=== PATIENT | female | born 1955 | race Caucasian/White ===

== ENCOUNTER → 2020-04-07 10:06 | Outpatient (BNVA) | payer BC, SELFPAY | PROVIDERS: Referring Provider Dermatology; Visit Provider Dermatology | DX: I87.2 Venous insufficiency (chronic) (peripheral) (principal); L24.5 Irritant contact dermatitis due to other chemical products; L73.9 Follicular disorder, unspecified; D22.9 Melanocytic nevi, unspecified; L81.7 Pigmented purpuric dermatosis | CPT/HCPCS: 99203; 99204 ==

== ENCOUNTER → 2023-03-16 10:34 | Outpatient (BNVA) | payer MEDICARE, SELFPAY | PROVIDERS: PCP Emergency Medicine; Visit Provider Nurse Practitioner Family | DX: L20.89 Other atopic dermatitis (principal); L57.0 Actinic keratosis; L81.4 Other melanin hyperpigmentation; D22.5 Melanocytic nevi of trunk; L85.3 Xerosis cutis; L57.8 Other skin changes due to chronic exposure to nonionizing radiation; Z85.828 Personal history of other malignant neoplasm of skin | CPT/HCPCS: 17000; 99214 ==

== ENCOUNTER → 2024-03-16 10:11 | Outpatient (BNVA) | payer MEDICARE, SELFPAY | PROVIDERS: PCP Emergency Medicine; Visit Provider Nurse Practitioner Family | DX: L57.0 Actinic keratosis (principal); B07.8 Other viral warts; L20.89 Other atopic dermatitis; L85.3 Xerosis cutis; D22.5 Melanocytic nevi of trunk; L81.4 Other melanin hyperpigmentation; Z85.828 Personal history of other malignant neoplasm of skin | CPT/HCPCS: 17000; 17110; 99213 ==

== ENCOUNTER → 2024-08-14 09:27 | Outpatient (BNVA) | payer MEDICARE, SELFPAY | PROVIDERS: PCP Emergency Medicine; Referring Provider Nurse Practitioner Family; Visit Provider Psychiatry & Neurology Neurology | DX: R41.3 Other amnesia (principal); F03.90 Unspecified dementia, unspecified severity, without behavioral disturbance, psychotic disturbance, mood disturbance, and anxiety; R26.89 Other abnormalities of gait and mobility; E53.8 Deficiency of other specified B group vitamins; E55.9 Vitamin D deficiency, unspecified; R29.898 Other symptoms and signs involving the musculoskeletal system; G56.03 Carpal tunnel syndrome, bilateral upper limbs; M48.00 Spinal stenosis, site unspecified; R29.818 Other symptoms and signs involving the nervous system; R29.2 Abnormal reflex; W19.XXXA Unspecified fall, initial encounter | CPT/HCPCS: 36415; 82306; 82542; 82607; 82746; 83520; 83735; 83921; 84439; 84443; 84481; 86592; 86617; 99203 ==

== ENCOUNTER → 2024-08-22 13:01 | Outpatient (BNVA) | payer MEDICARE, SELFPAY | PROVIDERS: PCP Emergency Medicine; Visit Provider Nurse Practitioner | DX: G56.03 Carpal tunnel syndrome, bilateral upper limbs (principal); R20.2 Paresthesia of skin; M25.531 Pain in right wrist; M25.532 Pain in left wrist | CPT/HCPCS: 73110; 99204 ==

== ENCOUNTER 2024-08-24 11:45 | Outpatient (CLI) | payer MEDICARE, SELFPAY ==
--- NOTE | 2024-08-24 12:15 | MR_ITS ---
WS: [id number] MRI BRAIN WITH AND WITHOUT CONTRAST HISTORY: F03.90 - Unspecified dementia, unspecified severity, weakness COMPARISON: None available. TECHNIQUE: Multiplanar imaging performed through the brain with MultiHance 10 ml's IV. No acute infarcts are seen. Baca-white matter differentiation is well preserved. Moderate cerebral atrophy. Greater atrophy involving the frontal and temporal lobes. Mild hippocampal atrophy. Confluent periventricular T2 and FLAIR signal hyperintensities. Prior infarct RIGHT temporal lobe. Moderate bilateral small vessel disease in the puma. No susceptibility artifacts or prior lacunar infarcts. Mild ventricular and extra-axial spaces dilatation on the basis of atrophy. Clivus and pituitary gland are normal. Postcontrast images are negative for masses or vascular malformations. Dural venous sinuses are normal. Paranasal sinuses: Well aerated with no significant disease. Mastoid air cells: Normal. Calvarium and scalp: Normal. MR/MR head wo/w con [id number] IMPRESSION: 1. No acute infarct or hemorrhage. 2. No intracranial mass or abnormal enhancement. 3. Moderate cerebral atrophy greatest involving the frontal and temporal lobes . 4. Moderate bilateral small vessel ischemic disease in the puma.
--- NOTE | 2024-08-24 13:00 | MR_ITS ---
WS: [email or web address] MRI CERVICAL SPINE with and without contrast HISTORY: M48.00 - Spinal stenosis, site unspecified COMPARISON: None available. Technique: Multiplanar, multisequence noncontrast imaging of the cervical spine. Postcontrast imaging 10 mm MultiHance Mild increase in cervical lordosis. C5 anterolisthesis by 2 mm. Disc spaces and vertebral body heights are well-maintained. No fracture or marrow edema. Normal signal within the cord. Signal within the cervical cord is normal. Visualized posterior fossa is unremarkable. Craniocervical junction, C1 and C2 relationship, odontoid process and soft tissues are normal. C2-C3: Normal. C3-C4: Mild osteophytic ridging. No stenosis. C4-C5: Small LEFT foraminal osteophyte causing mild foraminal narrowing. Mild facet arthritis. C5-C6: Mild annular disc bulging with moderate bilateral facet arthritis and foraminal osteophytes. Mild bilateral foraminal stenosis. C6-C7: Mild osteophytic ridging. Mild facet arthritis. Mild foraminal stenosis. C7-T1: Normal. Paraspinal soft tissues are normal. No enhancing masses. No discitis or osteomyelitis. No facet joint synovitis or acute enhancement. MR/MR cervical spine wo/w [id number] IMPRESSION: 1. No discitis or osteomyelitis. 2. Very slight increase in cervical lordosis. 3. C5 anterolisthesis by 2 mm. 4. C5-6: Mild foraminal stenosis with moderate bilateral facet arthritis. 5. C4-5: LEFT foraminal osteophyte causing mild foraminal narrowing. 6. C6-7: Mild foraminal narrowing due to osteophytes.
--- NOTE | 2024-08-24 13:45 | MR_ITS ---
WS: [email or web address] MRI LUMBAR SPINE WITH AND WITHOUT CONTRAST HISTORY: R29.898 - Other symptoms and signs involving the musculos... COMPARISON: None available. TECHNIQUE: Sagittal and axial multisequence imaging is submitted. MultiHance Mild increase in thoracic kyphosis. Mild LEFT curvature lumbar spine. Posterior lumbar alignment is normal. Disc spaces and vertebral body heights are maintained. Disc spaces and vertebral body heights are well-preserved. Conus terminates normally at L1-2 disc level. L1-L2: Normal. L2-L3: Mild asymmetric disc bulging to the LEFT. Very slight effacement of the LEFT CSF. No stenosis. L3-L4: Mild asymmetric disc bulging with ligamentum flavum and facet arthritis. Minimal subarticular recess encroachment, LEFT greater than RIGHT. Slight disc contact on the traversing LEFT L4 nerve root. Mild disc bulging into the LEFT foramen with mild foraminal stenosis. L4-L5: Mild annular disc bulging asymmetric to the LEFT. Disc encroaching upon the ventral thecal sac and subarticular recesses, greatest on the LEFT. There is contact on the traversing L5 nerve roots, LEFT greater than RIGHT with slight displacement. Shallow LEFT foraminal disc protrusion and mild LEFT foraminal stenosis. Mild central stenosis. Marked ligamentum flavum and facet arthritis. L5-S1: Mild disc bulging with a central disc protrusion. Very slight contact on the LEFT S1 nerve root. No foraminal stenosis. No discitis or osteomyelitis. No enhancing masses. No enhancement along the nerve roots. MR/MR lumbar spine wo/w con [id number] IMPRESSION: 1. Mild LEFT curvature lumbar spine. 2. No acute fractures. 3. L4-5: Mild central stenosis. Asymmetric disc bulging to the LEFT. Disc encr oachment upon the subarticular recesses contacting the traversing L5 nerve root s but greatest on the LEFT. Shallow LEFT foraminal disc protrusion resulting in LEFT foraminal stenosis. 4. L3-4: Slight disc contact on the traversing LEFT L4 nerve root. Mild LEFT s ubarticular recess and foraminal stenosis. 5. L5-S1: Shallow central disc protrusion with slight contact on the LEFT S1 n erve root. 6. No discitis or osteomyelitis.
[2024-08-24] MEDS: gadobenate dimeglumine 20 mL vial 10 ML IV (14:20)
== END 2024-08-24 11:46 | disposition home or self-care (01) ==
LOC: RAD 11:50
PROVIDERS: PCP Emergency Medicine; Visit Provider Psychiatry & Neurology Neurology
DX: F03.90 Unspecified dementia, unspecified severity, without behavioral disturbance, psychotic disturbance, mood disturbance, and anxiety (principal); R29.898 Other symptoms and signs involving the musculoskeletal system; M48.02 Spinal stenosis, cervical region; M43.8X6 Other specified deforming dorsopathies, lumbar region; M48.061 Spinal stenosis, lumbar region without neurogenic claudication; M51.369 Other intervertebral disc degeneration, lumbar region without mention of lumbar back pain or lower extremity pain; R93.7 Abnormal findings on diagnostic imaging of other parts of musculoskeletal system; M40.294 Other kyphosis, thoracic region; M47.896 Other spondylosis, lumbar region; M51.379 Other intervertebral disc degeneration, lumbosacral region without mention of lumbar back pain or lower extremity pain; M47.892 Other spondylosis, cervical region; M25.78 Osteophyte, vertebrae; M50.322 Other cervical disc degeneration at C5-C6 level; G31.89 Other specified degenerative diseases of nervous system; R93.0 Abnormal findings on diagnostic imaging of skull and head, not elsewhere classified
CPT/HCPCS: 70553; 72156; 72158; A9577

== ENCOUNTER 2024-08-27 10:19 | Outpatient (CLI) | payer MEDICARE, SELFPAY ==
--- NOTE | 2024-08-27 10:30 | USCV_ITS ---
Karen Bae Age: 69 Gender: F : 1955 Exam Date: 08/27/2024 10:41 Ordering Phys: Prasanna Chester MD Technologist: DARLYN Exam Location: [facility] [place] Indication: Balance Issues Risk Factors: Previous Vascular Surgery: Right Brachial BP: / Left Brachial BP: / Right Left Velocity (cm/s) Spectral Plaque Velocity (cm/s) Spectral Plaque Syst/Diast Broadening Syst/Diast Broadening 53.00/ 14.10 Prox CCA 84.50 / 21.90 72.40/ 21.90 Mid CCA 93.20 / 28.00 60.60/ 14.10 Distal CCA 79.90 / 21.40 43.00/ 11.00 Prox ICA 74.70 / 26.90 49.90/ 15.90 Mid ICA 131.70/ 36.40 92.80/ 29.20 Distal ICA 100.00/ 26.90 55.70 ECA 61.10 0.70 ICA/CCA 0.90 Antegrade Vertebral Antegrade 50.00/ 10.80 cm/s 46.60/ 15.20 cm/s Tri Subclavian Bi 101.7 118.8 0 0 CONCLUSIONS Right ICA stenosis <50%. Mild atheromatous plaque right carotid bulb/ICA. Left ICA stenosis <50%. Mild atheromatous plaque left carotid bulb/ICA. Intimal thickening in the common carotid arteries and internal carotid arteries bilaterally. Normal antegrade Doppler flow noted in the right vertebral artery. Normal antegrade Doppler flow noted in the left vertebral artery. Ronald Gaona MD (Electronically Signed) Final Date: 27 August 2024 15:18 S
== END 2024-08-27 10:20 | disposition home or self-care (01) ==
LOC: RAD 10:21
PROVIDERS: PCP Emergency Medicine; Visit Provider Psychiatry & Neurology Neurology
DX: F03.90 Unspecified dementia, unspecified severity, without behavioral disturbance, psychotic disturbance, mood disturbance, and anxiety (principal); R26.89 Other abnormalities of gait and mobility; E53.8 Deficiency of other specified B group vitamins; I65.23 Occlusion and stenosis of bilateral carotid arteries; R93.89 Abnormal findings on diagnostic imaging of other specified body structures
CPT/HCPCS: 93880

== ENCOUNTER → 2024-08-28 09:07 | Outpatient (BNVA) | payer MEDICARE, SELFPAY | PROVIDERS: PCP Emergency Medicine; Referring Provider Psychiatry & Neurology Neurology; Visit Provider Psychiatry & Neurology Neurology | DX: G56.03 Carpal tunnel syndrome, bilateral upper limbs (principal) | CPT/HCPCS: 95912 ==

== ENCOUNTER 2024-09-06 09:23 | Outpatient (CLI) | payer MEDICARE, SELFPAY ==
--- NOTE | 2024-09-06 09:30 | MR_ITS ---
WS: [email or web address] MRI THORACIC SPINE with and without contrast HISTORY: R29.898 - Other symptoms and signs involving the musculoskeletal system COMPARISON: None available. TECHNIQUE: Multiplanar sequences are performed in sagittal and axial planes. Post contrast imaging MultiHance 10 mL. Mild increase in thoracic kyphosis. No cord compression. Normal appearance of the cord. No marrow edema or fracture. Conus tapers normally and ends at T12-L1. Tiny RIGHT paracentral disc protrusion at T10-11. No contact on the cord. Mild facet arthritis of the mid to lower thoracic spine. Paravertebral soft tissues are normal. Postcontrast imaging is negative for discitis or osteomyelitis. No enhancing cord lesions. MR/MR thoracic spine wo/w [id number] IMPRESSION: 1. No central or foraminal stenosis within the thoracic spine. 2. No enhancing masses, discitis or osteomyelitis. 3. Tiny RIGHT paracentral disc protrusion at T10-11.
== END 2024-09-06 09:24 | disposition home or self-care (01) ==
LOC: RAD 09:26
PROVIDERS: PCP Emergency Medicine; Visit Provider Psychiatry & Neurology Neurology
DX: R29.898 Other symptoms and signs involving the musculoskeletal system (principal); R29.2 Abnormal reflex; R29.818 Other symptoms and signs involving the nervous system; M40.294 Other kyphosis, thoracic region; M47.894 Other spondylosis, thoracic region
CPT/HCPCS: 72157

== ENCOUNTER → 2024-09-11 10:23 | Outpatient (BNVA) | payer MEDICARE, SELFPAY | PROVIDERS: PCP Emergency Medicine; Visit Provider Orthopaedic Surgery | DX: M54.50 Low back pain, unspecified (principal); R29.898 Other symptoms and signs involving the musculoskeletal system | CPT/HCPCS: 72110; 99203 ==

== ENCOUNTER 2024-09-26 09:30 | Oncology outpatient (recurring) (ONCR) | payer MEDICARE, SELFPAY ==
[2024-09-26 11:15] LABS: Basophils # 0.1 10^3/uL (0.0-0.1); Basophils % 0.6 %; Eosinophils # 0.4 10^3/uL (0.0-0.8); Eosinophils % 3.8 %; Hematocrit 38.9 % (36-47); Lymphocytes # 4.5 10^3/uL (0.8-4.8); Lymphocytes % 47.5 %; Mean Corpuscular HGB Conc 33.2 g/dL (30-55); Mean Corpuscular Hemoglobin 30.3 pg (27-33); Mean Corpuscular Volume 91.3 fl (85-98); Mean Platelet Volume 10.1 fL (7.4-10.4); Monocytes # 0.6 10^3/uL (0.2-0.9); Neutrophils # 3.95 10^3/uL (1.8-7.7); Neutrophils % 41.8 %; Nucleated Red Blood Cells % 0 %; Platelet Count 240 10^3/cmm (157-399); Red Blood Count 4.26 10^6/uL (3.85-5.65); Red Cell Distribution Width 13.4 % (12.1-15.1); White Blood Count 9.47 10^3/uL (3.29-11.43)
[2024-09-26 11:19] LABS: Erythrocyte Sedimentation Rate < 1 mm/hr (0-15)
[2024-09-26 11:44] LABS: Alanine Aminotransferase 20 U/L (0-33); Albumin Level 4.1 g/dL (3.5-5.2); Alkaline Phosphatase 64 U/L (35-105); Anion Gap 15.6 (5-19); Aspartate Amino Transferase 24 U/L (0-32); Blood Urea Nitrogen 17 mg/dL (8-23); Carbon Dioxide 24 mmol/L (22-29); Chloride 108 mmol/L (98-107); Globulin 1.9 g/dL (1.3-4.6); Glomerular Filtration Rate 49.1 mL/min (90-130); Glucose 82 mg/dL (65-115); Lactate Dehydrogenase 182 U/L (135-214); Osmolality Calculated 299 mOsm/kg (285-295); Potassium 3.6 mmol/L (3.5-5.1); Sodium 144 mmol/L (136-145); Total Bilirubin 0.3 mg/dL (0.15-1.2); Uric Acid 4.2 mg/dL (2.4-5.7)
[2024-09-26 12:07] LABS: Immunoglobulin IGA 90 mg/dL (70-400); Immunoglobulin IGG 514 mg/dL (700-1600); Immunoglobulin IGM 39 mg/dL (40-230)
[2024-09-27 08:45] LABS: PROTEIN, TOTAL 5.6 g/dL (6.1-8.1)
[2024-09-28 08:49] LABS: ABNORMAL PROTEIN BAND 1 0.1 g/dL (NONE DETECTED); ALBUMIN 3.8 g/dL (3.8-4.8); ALPHA 1 GLOBULIN 0.2 g/dL (0.2-0.3); ALPHA 2 GLOBULIN 0.6 g/dL (0.5-0.9); BETA 1 GLOBULIN 0.3 g/dL (0.4-0.6); BETA 2 GLOBULIN 0.2 g/dL (0.2-0.5); GAMMA GLOBULIN 0.4 g/dL (0.8-1.7)
[2024-09-28 11:15] LABS: KAPPA LIGHT CHAIN, FREE, SERUM 26.6 mg/L (3.3-19.4); KAPPA/LAMBDA LIGHT CHAINS FREE 1.83 (0.26-1.65); LAMBDA LIGHT CHAIN, FREE, SERU 14.5 mg/L (5.7-26.3)
== END 2024-10-08 23:59 | disposition home or self-care (01) ==
PROVIDERS: PCP Emergency Medicine; Visit Provider Internal Medicine
DX: R79.9 Abnormal finding of blood chemistry, unspecified (principal); R41.3 Other amnesia; W19.XXXA Unspecified fall, initial encounter; R29.818 Other symptoms and signs involving the nervous system; R22.9 Localized swelling, mass and lump, unspecified; R26.81 Unsteadiness on feet; M81.0 Age-related osteoporosis without current pathological fracture; R44.0 Auditory hallucinations; F32.A Depression, unspecified; E03.9 Hypothyroidism, unspecified; Z78.0 Asymptomatic menopausal state
CPT/HCPCS: 36415; 72190; 73552; 80053; 82784; 83615; 83883; 84155; 84165; 84550; 85025; 85651; 86140; 86334; 99204

== ENCOUNTER 2024-10-17 13:44 | Oncology outpatient (recurring) (ONCR) | payer MEDICARE, SELFPAY ==
--- NOTE | 2024-10-09 14:45 | US_ITS ---
WS: [email or web address] US pelvic limited [id number] HISTORY: left groin mass COMPARISON: None available. Palpable area within the LEFT groin corresponds to a cystic area measuring 2.3 x 1.7 x 1.8 cm. There is good through transmission. Along the inferior segment of this mass there is a solid component without increased vascularity. There is mild circumferential wall thickening surrounding the cystic mass. US/US pelvic limited [id number] IMPRESSION: Cystic mass in the LEFT groin with nodularity in the internal inferior componen t of the mass. There is no increased vascularity. This needs to be further eval uated. This may be a fluid-filled hernia in the LEFT inguinal region. Cystic ne crosis of the lymph node within the differential. Recommend follow-up CT pelvis with IV contrast.
== END 2024-11-07 23:59 | disposition home or self-care (01) ==
PROVIDERS: PCP Emergency Medicine; Visit Provider Internal Medicine
DX: R79.9 Abnormal finding of blood chemistry, unspecified (principal); R41.3 Other amnesia; W19.XXXA Unspecified fall, initial encounter; R29.818 Other symptoms and signs involving the nervous system; R26.9 Unspecified abnormalities of gait and mobility; M81.0 Age-related osteoporosis without current pathological fracture; R44.0 Auditory hallucinations; F32.A Depression, unspecified; E03.9 Hypothyroidism, unspecified; N95.9 Unspecified menopausal and perimenopausal disorder; D89.2 Hypergammaglobulinemia, unspecified
CPT/HCPCS: 76857; 99213

== ENCOUNTER → 2024-11-19 12:44 | Outpatient (BNVA) | payer MEDICARE, SELFPAY | PROVIDERS: PCP Emergency Medicine; Referring Provider Emergency Medicine; Visit Provider Psychiatry & Neurology Neurology | DX: R41.3 Other amnesia (principal); F02.80 Dementia in other diseases classified elsewhere, unspecified severity, without behavioral disturbance, psychotic disturbance, mood disturbance, and anxiety; F03.90 Unspecified dementia, unspecified severity, without behavioral disturbance, psychotic disturbance, mood disturbance, and anxiety; R29.818 Other symptoms and signs involving the nervous system; R29.898 Other symptoms and signs involving the musculoskeletal system; R29.2 Abnormal reflex; W19.XXXA Unspecified fall, initial encounter | CPT/HCPCS: 99212 ==

== ENCOUNTER → 2025-01-14 10:11 | Outpatient (BNVA) | payer MEDICARE, SELFPAY | PROVIDERS: PCP Emergency Medicine; Visit Provider Psychiatry & Neurology Neurology | DX: R41.3 Other amnesia (principal) | CPT/HCPCS: 96116; 99213 ==

== ENCOUNTER 2025-01-23 12:57 | Oncology outpatient (recurring) (ONCR) | payer MEDICARE, SELFPAY ==
[2025-01-16 09:53] LABS: Hematocrit 40.6 % (36-47); Hemoglobin 13.80 g/dL (11.27-16.99); Mean Corpuscular HGB Conc 34.0 g/dL (30-55); Mean Corpuscular Hemoglobin 30.3 pg (27-33); Mean Corpuscular Volume 89.2 fl (85-98); Nucleated Red Blood Cells % 0 %; Platelet Count 233 10^3/cmm (157-399); Red Blood Count 4.55 10^6/uL (3.85-5.65); White Blood Count 10.77 10^3/uL (3.29-11.43)
[2025-01-16 10:15] LABS: Alanine Aminotransferase 17 U/L (0-33); Albumin Level 4.3 g/dL (3.5-5.2); Alkaline Phosphatase 66 U/L (35-105); Anion Gap 18.0 (5-19); Aspartate Amino Transferase 22 U/L (0-32); Blood Urea Nitrogen 19 mg/dL (8-23); Calcium 8.8 mg/dL (8.5-10.5); Carbon Dioxide 21 mmol/L (22-29); Chloride 109 mmol/L (98-107); Globulin 1.9 g/dL (1.3-4.6); Glucose 92 mg/dL (65-115); Osmolality Calculated 300 mOsm/kg (285-295); Potassium 4.0 mmol/L (3.5-5.1); Sodium 144 mmol/L (136-145); Total Protein 6.2 g/dL (6.6-8.7); Uric Acid 3.7 mg/dL (2.4-5.7)
[2025-01-16 10:16] LABS: Thyroid Stimulating Hormone 7.44 uIU/mL (0.27-4.20)
[2025-01-16 10:39] LABS: Free T4 Free Thyroxine 1.08 ng/dL (0.82-1.77)
[2025-01-17 07:19] LABS: PROTEIN, TOTAL 5.9 g/dL (6.1-8.1)
[2025-01-17 07:48] LABS: Protein/Creatinine Ratio 0.184 (<0.150); Protein/Creatinine Ratio 184 mg/g creat (<150)
[2025-01-17 14:39] LABS: KAPPA LIGHT CHAIN, FREE, SERUM 23.6 mg/L (3.3-19.4); KAPPA/LAMBDA LIGHT CHAINS FREE 1.87 (0.26-1.65); LAMBDA LIGHT CHAIN, FREE, SERU 12.6 mg/L (5.7-26.3)
[2025-01-19 11:49] LABS: ALPHA 1 GLOBULIN 0.2 g/dL (0.2-0.3); ALPHA 2 GLOBULIN 0.6 g/dL (0.5-0.9); BETA 1 GLOBULIN 0.3 g/dL (0.4-0.6); BETA 2 GLOBULIN 0.2 g/dL (0.2-0.5)
[2025-01-22 12:30] LABS: ALPHA-1-GLOBULINS 0 %; ALPHA-2-GLOBULINS 0 %; BETA GLOBULINS 0 %; GAMMA GLOBULINS 0 %
== END 2025-02-07 23:59 | disposition home or self-care (01) ==
PROVIDERS: Internal Medicine; PCP Emergency Medicine; Visit Provider Internal Medicine
DX: R79.9 Abnormal finding of blood chemistry, unspecified (principal); M81.0 Age-related osteoporosis without current pathological fracture; Z78.0 Asymptomatic menopausal state; R19.09 Other intra-abdominal and pelvic swelling, mass and lump; F32.A Depression, unspecified; R44.0 Auditory hallucinations; E03.9 Hypothyroidism, unspecified
CPT/HCPCS: 36415; 80053; 82784; 83615; 83883; 84155; 84156; 84165; 84166; 84439; 84443; 84550; 85025; 86140; 86334; 86335; 99213

== ENCOUNTER → 2025-02-04 10:36 | Outpatient (BNVA) | payer MEDICARE, SELFPAY | PROVIDERS: PCP Emergency Medicine; Referring Provider Psychiatry & Neurology Neurology; Visit Provider Internal Medicine | DX: E03.8 Other specified hypothyroidism (principal); R20.2 Paresthesia of skin; R41.3 Other amnesia; R41.89 Other symptoms and signs involving cognitive functions and awareness | CPT/HCPCS: 99214 ==

== ENCOUNTER → 2025-03-18 10:06 | Outpatient (BNVA) | payer MEDICARE, SELFPAY | PROVIDERS: PCP Emergency Medicine; Visit Provider Nurse Practitioner Family | DX: L20.89 Other atopic dermatitis (principal); L81.0 Postinflammatory hyperpigmentation; L82.1 Other seborrheic keratosis; L81.4 Other melanin hyperpigmentation; Z08 Encounter for follow-up examination after completed treatment for malignant neoplasm; Z85.828 Personal history of other malignant neoplasm of skin; B07.8 Other viral warts; R20.8 Other disturbances of skin sensation; R23.8 Other skin changes; L53.8 Other specified erythematous conditions | CPT/HCPCS: 17110; 99213 ==

== ENCOUNTER 2025-04-02 09:33 | Outpatient (CLI) | payer MEDICARE, SELFPAY ==
[2025-04-02 11:38] LABS: Hematocrit 39.3 % (36-47); Hemoglobin 13.20 g/dL (11.27-16.99); Mean Corpuscular HGB Conc 33.6 g/dL (30-55); Mean Corpuscular Hemoglobin 31.2 pg (27-33); Mean Corpuscular Volume 92.9 fl (85-98); Nucleated Red Blood Cells % 0 %; Platelet Count 224 10^3/cmm (157-399); Red Blood Count 4.23 10^6/uL (3.85-5.65); White Blood Count 8.63 10^3/uL (3.29-11.43)
[2025-04-02 12:12] LABS: Alanine Aminotransferase 16 U/L (0-33); Albumin Level 4.1 g/dL (3.5-5.2); Alkaline Phosphatase 62 U/L (35-105); Anion Gap 11.8 (5-19); Aspartate Amino Transferase 21 U/L (0-32); Blood Urea Nitrogen 22 mg/dL (8-23); Calcium 8.8 mg/dL (8.5-10.5); Carbon Dioxide 27 mmol/L (22-29); Chloride 106 mmol/L (98-107); Globulin 2.0 g/dL (1.3-4.6); Glucose 67 mg/dL (65-115); Osmolality Calculated 294 mOsm/kg (285-295); Potassium 3.8 mmol/L (3.5-5.1); Sodium 141 mmol/L (136-145); Thyroid Stimulating Hormone 2.88 uIU/mL (0.27-4.20); Total Protein 6.1 g/dL (6.6-8.7)
[2025-04-02 12:41] LABS: Free T4 Free Thyroxine 0.89 ng/dL (0.82-1.77)
[2025-04-03 11:24] LABS: KAPPA LIGHT CHAIN, FREE, SERUM 21.2 mg/L (3.3-19.4); KAPPA/LAMBDA LIGHT CHAINS FREE 1.70 (0.26-1.65); LAMBDA LIGHT CHAIN, FREE, SERU 12.5 mg/L (5.7-26.3)
== END 2025-04-02 09:34 | disposition home or self-care (01) ==
PROVIDERS: Internal Medicine; PCP Emergency Medicine; Visit Provider Internal Medicine Hematology & Oncology
DX: R79.9 Abnormal finding of blood chemistry, unspecified (principal); R20.2 Paresthesia of skin
CPT/HCPCS: 36415; 80053; 82784; 83615; 83883; 84439; 84443; 85025

== ENCOUNTER → 2025-05-15 14:54 | Outpatient (BNVA) | payer MEDICARE, SELFPAY | PROVIDERS: PCP Emergency Medicine; Visit Provider Specialist | DX: G30.9 Alzheimer's disease, unspecified (principal); F02.80 Dementia in other diseases classified elsewhere, unspecified severity, without behavioral disturbance, psychotic disturbance, mood disturbance, and anxiety; R03.0 Elevated blood-pressure reading, without diagnosis of hypertension; R29.818 Other symptoms and signs involving the nervous system | CPT/HCPCS: 99215 ==

== ENCOUNTER 2025-05-30 10:48 | Outpatient (CLI) | payer MEDICARE, SELFPAY ==
--- NOTE | 2025-05-30 11:00 | MR_ITS ---
WS: [email or web address] MRI BRAIN WITHOUT CONTRAST HISTORY: Base Line for [facility] COMPARISON: MRI 08/24/2024 TECHNIQUE: Diffusion imaging, multiplanar T1, T2 and FLAIR imaging obtained. No acute infarcts. Normal diffusion imaging. Moderate cerebral atrophy. Greater atrophy fight involving the frontal and temporal lobes. Mild hippocampal atrophy is stable. Reidentified is confluent periventricular T2 and FLAIR signal hyperintensities. The amount of T2 disease appears slightly more prominent as compared to 08/24/2024. Bilateral small vessel changes in the puma also appear more prominent. Prior infarct in the RIGHT temporal lobe is reidentified. Mild volume loss. Ventricles and extra-axial spaces are prominent on the basis of atrophy. No inferior displacement of cerebellar tonsils. The sella turcica and pituitary gland are unremarkable. Dural venous sinuses and torres martinez of [place] demonstrate no abnormality on this unenhanced studies. Paranasal sinuses: Clear. Mastoid air cells: Normal. Calvarium and scalp: Intact. MR/MR head wo con* [id number] IMPRESSION: 1. Normal diffusion imaging. No acute infarct. 2. T2 and FLAIR signal hyperintensities in the supratentorial white matter and bilaterally within the puma appears slightly more progressed as compared to . No new infarct. 3. Stable ventriculomegaly and extra-axial spaces due to of atrophy. 4. Moderate cerebral and cerebellar atrophy. 5. Mild hippocampal atrophy is stable.
== END 2025-05-30 10:49 | disposition home or self-care (01) ==
LOC: RAD 10:49
PROVIDERS: PCP Emergency Medicine; Visit Provider Specialist
DX: G30.9 Alzheimer's disease, unspecified (principal); F02.80 Dementia in other diseases classified elsewhere, unspecified severity, without behavioral disturbance, psychotic disturbance, mood disturbance, and anxiety; R93.0 Abnormal findings on diagnostic imaging of skull and head, not elsewhere classified; G31.89 Other specified degenerative diseases of nervous system
CPT/HCPCS: 70551

== ENCOUNTER 2025-06-10 11:26 | Outpatient (CLI) | payer MEDICARE, SELFPAY ==
[2025-06-10 12:44] LABS: Free T4 Free Thyroxine 0.98 ng/dL (0.82-1.77); Thyroid Stimulating Hormone 9.68 uIU/mL (0.27-4.20)
== END 2025-06-10 11:27 | disposition home or self-care (01) ==
LOC: LAB 11:26
PROVIDERS: Internal Medicine; PCP Emergency Medicine; Visit Provider Specialist
DX: R20.2 Paresthesia of skin (principal); E03.8 Other specified hypothyroidism
CPT/HCPCS: 36415; 82233; 82234; 82542; 83520; 84439; 84443